=== PATIENT | male | born 2000 | race Caucasian/White ===

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

== ENCOUNTER 2023-04-05 09:30 | Emergency (ER) | payer BC ==
[~2023-04-05] VITALS: Ht 188 cm; Wt 66.7 kg
[2023-04-05 10:02] LABS: BASOPHILS ABSOLUTE AUTO 0.04 K/mm3 (0.00-0.23); BASOPHILS PERCENT AUTO 0 % (0-2); EOSINOPHILS ABSOLUTE AUTO 0.02 K/mm3 (0.00-0.68); EOSINOPHILS PERCENT AUTO 0 % (0-6); Hematocrit 51.3 % (37.0-53.0); Hemoglobin 17.9 g/dL (13.5-17.5); IMMATURE GRAN ABSOLUTE AUTO 0.05 K/mm3 (0.00-0.10); IMMATURE GRAN PERCENT AUTO 0 % (0-1); LYMPHOCYTES PERCENT AUTO 4 % (21-46); MONOCYTES ABSOLUTE AUTO 0.79 K/mm3 (0.16-1.47); MONOCYTES PERCENT AUTO 5 % (4-13); Mean Corpuscular HGB 32.1 pg (26.0-34.0); Mean Corpuscular HGB Conc 34.9 g/dL (31.5-36.5); Mean Corpuscular Volume 92 fL (80-100); Mean Platelet Volume 10.9 fL (9.1-12.4); NEUTROPHILS ABSOLUTE AUTO 14.22 K/mm3 (1.96-9.15); NEUTROPHILS PERCENT AUTO 91 % (41-73); Platelet Count 234 K/mm3 (150-400); RDW Coefficient Variation 11.9 % (11.7-14.2); RDW Standard Deviation 40.1 fL (35.1-46.3); Red Blood Cell Count 5.57 M/mm3 (4.30-5.90); White Blood Cell Count 15.72 K/mm3 (4.00-11.30)
[2023-04-05 10:35] LABS: Albumin, Blood 4.1 g/dL (3.4-5.0); Bilirubin, Total 3.3 mg/dL (0.1-1.0); Bun/Creatinine Ratio 21.3 (12.0-20.0); Calcium, Blood 9.2 mg/dL (8.5-10.1); Creatinine, Blood 0.99 mg/dL (0.60-1.20); Globulin, Blood 4.3 g/dL (2.2-4.0); Potassium, Blood 4.3 mmol/L (3.5-5.5); Total Protein, Blood 8.4 g/dL (6.4-8.2)
[2023-04-05 11:30] VITALS: BP 136/71
[2023-04-05] MEDS ORDERED: ONDA4ODT MM (11:46)
== END 2023-04-05 12:01 | disposition home or self-care (01) ==
LOC: ER 09:30
PROVIDERS: Emergency Medicine
DX: R11.2 Nausea with vomiting, unspecified (principal); E86.0 Dehydration; R07.89 Other chest pain; R79.89 Other specified abnormal findings of blood chemistry; D72.829 Elevated white blood cell count, unspecified; F17.290 Nicotine dependence, other tobacco product, uncomplicated; Z88.0 Allergy status to penicillin
CPT/HCPCS: 71045; 76705; 80053; 83690; 85025; 96361; 96374; 96375; 99284-25; J1885; J2405; J7030

== ENCOUNTER 2024-04-12 19:18 | Emergency (ER) | payer BC ==
[~2024-04-12] VITALS: Ht 188 cm; Wt 68.0 kg
[~2024-04-12 19:18] MED LIST: ONDA4ODT MM
[2024-04-12 19:52] VITALS: BP 148/86
[2024-04-12] MEDS ORDERED: RX Prepack 6 Tabs Oxycodone 5mg UD ONE (19:55)
[2024-04-12] MEDS ORDERED: Azithromycin 250 MG Tab PO ONE (19:55)
== END 2024-04-12 21:37 | disposition home or self-care (01) ==
LOC: ER 19:18
DX: K08.89 Other specified disorders of teeth and supporting structures (principal); Z88.0 Allergy status to penicillin
CPT/HCPCS: 99282; A9270

== ENCOUNTER 2024-12-21 09:13 | Emergency (ER) | payer BC ==
[~2024-12-21] VITALS: Ht 188 cm; Wt 68.0 kg
[2024-12-21 09:40] VITALS: BP 117/68
== END 2024-12-21 11:16 | disposition home or self-care (01) ==
LOC: ER 09:13
DX: N99.843 Postprocedural seroma of a genitourinary system organ or structure following other procedure (principal); Z87.19 Personal history of other diseases of the digestive system; Z88.0 Allergy status to penicillin
CPT/HCPCS: 76870; 99284-25